=== PATIENT | female | born 2000 | race Caucasian/White ===

== ENCOUNTER 2021-02-23 20:26 | Emergency (ER) | payer BC ==
[~2021-02-23] VITALS: Ht 165.1 cm; Wt 56.8 kg
[2021-02-23 20:28] VITALS: TEMP 98.6
[2021-02-23] MEDS ORDERED: EPIPEN 2-PAK1 MG/ML IM (20:59)
[2021-02-23 21:43] VITALS: BP 116/74; PULSE 94
== END 2021-02-23 21:45 | disposition home or self-care (01) ==
LOC: COL.ER 20:26
DX: T78.1XXA Other adverse food reactions, not elsewhere classified, initial encounter (principal)
CPT/HCPCS: J2930